=== PATIENT | male | born 1965 | race Caucasian/White ===

== ENCOUNTER 2018-03-09 06:15 | Emergency (ER) | payer OTHER ==
--- NOTE | 2018-03-09 06:46 | ED UPPER/LOWER EXTREMITY COMPL ---
History of Present Illness General Chief Complaint: Lower Extremity Problems Stated Complaint: RUPTURED VEIN IN RT LEG,BLEEDING HAS STOPPED Source: patient, family Exam Limitations: no limitations Vital Signs & Intake/Output Vital Signs & Intake/Output Vital Signs Date Time Temp Pulse Resp B/P B/P Pulse O2 O2 Flow FiO2 Mean Ox Delivery Rate 03/09 0650 Room Air 03/09 0636 98.7 71 20 182/106 95 Room Air Allergies Coded Allergies: Penicillins (UNKNOWN 03/09/18) Triage Note: PT TO TRIAGE WITH CIRCULAR REDNESS/SCAB TO R INNER ANKLE BONE. PER PT HAD JODY THERE FOR A WHILE BUT THIS MORNING IT BURST AND WAS "SPURTING" BLOOD WHEN HE GOT OUT OF THE SHOWER. NO ACTIVE BLEEDING. -THINNERS. HYPERTENSIVE IN TRIAGE 182/106. PT STATES HE IS WORKED UP/ NERVOUS. Triage Nurses Notes Reviewed? yes Onset: Gradual Duration: minute(s):, gone now Timing: recent history Severity: mild Pain/Injury Location: Right: Leg. Method of Injury: unknown HPI: 52 yo woman presents with punctate area of bleeding from a varicose vein in his right rivera. He notes the bleeding lasted 4-5 minutes and self resolved. "There was a lot of blood... it spurted out." He notes no trauma, no pain, no redness or tenderness. He is otherwise well. Past History Travel History Traveled to [place] past 21 day No Medical History Any Pertinent Medical History? 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 No Review of Systems Review of Systems Constitutional: Reports: no symptoms. EENTM: Reports: no symptoms. Respiratory: Reports: no symptoms. Cardiovascular: Reports: no symptoms. Gastrointestinal/Abdominal: Reports: no symptoms. Genitourinary: Reports: no symptoms. Musculoskeletal: Reports: no symptoms. Skin: Reports: no symptoms. Neurological/Psychological: Reports: no symptoms. Hematologic/Endocrine: Reports: no symptoms. Immunological: Reports: no symptoms. All Other Systems: Reviewed and Negative Physical Exam Physical Exam General Appearance: well developed/nourished, mild distress Head: atraumatic Neck: normal inspection, supple Leg Right: punctate lesion in midst of small varicose vein. no active bleeding. no sign of infection. Skin: intact, normal color Progress Differential Diagnosis: bleeding from varicose vein vs other. Plan of Care: serena wrap placed on varicose vein... pt safe for discharge. Departure Departure Disposition: HOME OR SELF CARE Condition: Stable Clinical Impression Primary Impression: Bleeding from varicose vein Departure Forms: Customer Survey General Discharge Information
[2018-03-09 06:58] VITALS: BP 158/90
== END 2018-03-09 06:59 ==
LOC: ERH 06:15
DX: I83.891 Varicose veins of right lower extremity with other complications (principal)